=== PATIENT | female | born 1965 | race Caucasian/White ===

== ENCOUNTER 2020-05-12 09:46 | Emergency (ER) | payer SELFPAY ==
--- NOTE | ~2020-05-12 | XR_ITS ---
EXAMINATION: XR abdomen/kub 1V DATE: 05/12/2020 14:10 INDICATION: Left ureteral stone. TECHNIQUE: A supine view of the abdomen on 2 radiographs was obtained. COMPARISON: CT abdomen and pelvis 05/12/2020 FINDINGS: There are no dilated loops of bowel. There is a 5 mm stone in proximal left ureter. IMPRESSION: 1. 5 mm stone in proximal left ureter. Reviewed, dictated and finalized at location A. F [employer]
--- NOTE | ~2020-05-12 | CT_ITS ---
EXAMINATION: CT abdomen pelvis wo con DATE: 05/12/2020 12:20 INDICATION: Left flank pain. TECHNIQUE: Computed tomography (CT) of the abdomen and pelvis was performed without intravenous contr ast. Automated exposure control and iterative reconstruction technique were employed. The dose-length product was 552.63 mGy-cm. COMPARISON: None. FINDINGS: The visualized portions of the lung bases demonstrate patchy areas of peripheral septal thi ckening and groundglass opacities with areas of honeycombing. No pleural effusion. The heart size is normal. No pericardial effusion. There is a small sliding hiatal hernia. A calcification in the liver is consistent with old granulomatous disease. The gallbladder, spleen, pancreas, adrenal glands, and kidneys are normal. There is a 5 mm stone at left ureteropelvic junction. There are no dilated loops of bowel. The appendix is normal. There are no pathologically enlarged lymph nodes. There is no free intraperitoneal fluid. There is severe lower lumbar spondylosis. IMPRESSION: 1. 5 mm stone at left ureteropelvic junction. No hydronephrosis. 2. Multifocal lung disease, which may be chronic interstitial lung disease or a combination of acute and chronic lung disease (such as atypical pneumonia superimposed on chronic interstitial lung diseas e). Reviewed, dictated and finalized at location A. [employer] TE[employer]ER IMPRESSION: 1. 5 mm stone at left ureteropelvic junction. No hydronephrosis. 2. Multifocal lung disease, which may be chronic interstitial lung disease or a combination of acute and chronic lung disease (such as atypical pneumonia supe rimposed on chronic interstitial lung disease).
[2020-05-12 09:50] VITALS: BP 139/94; PULSE 96; RESP 20; TEMP 36.6; O2SAT 98
[2020-05-12 10:08] LABS: Basophils Percent Auto 0.2 % (0.2-1.2); Eosinophils Percent Auto 0.2 % (0-4.4); Hematocrit 40.1 % (37.0-47.0); Hemoglobin 13.4 g/dL (12.0-15.0); Immature Granulocyte Absolute 0.03 K/mm3 (0.00-0.031); Immature Granulocyte Percent A 0.4 % (0-0.5); Lymphocytes Absolute Auto 1.39 K/mm3 (0.9-3.2); Lymphocytes Percent Auto 17.1 % (18.3-44.2); Mean Corpuscular HGB Conc 33.4 g/dl (32-36); Mean Corpuscular Hemoglobin 31.4 pg (26-34); Mean Corpuscular Volume 93.9 fl (80-100); Mean Platelet Volume 8.9 fl (7.4-10.4); Monocytes Absolute Auto 0.4 K/mm3 (0.1-0.6); Monocytes Percent Auto 5.4 % (2.6-8.5); Neutrophils Absolute Auto 6.2 K/mm3 (1.3-6.7); Neutrophils Percent Auto 76.7 % (45.5-73.1); Platelet Count Result 229 k/mm3 (150-375); Red Blood Count 4.27 M/mm3 (4.2-5.4); White Blood Count 8.1 K/mm3 (4.5-10.0)
[2020-05-12 10:23] LABS: Anion Gap 7 mmol/L (8-16); Blood Urea Nitrogen 17 mg/dL (7-17); Calcium 8.6 mg/dL (8.4-10.2); Carbon Dioxide 29 mmol/L (22-30); Chloride 101 mmol/L (98-107); Estimated CRCL calculation 71 ml/min; Estimated Glomerular Filt Rate > 60; Glucose 124 mg/dL (65-105); Potassium 3.9 mmol/L (3.4-5.0); Sodium 137 mmol/L (137-145)
[2020-05-12 10:56] VITALS: BP 125/69; PULSE 80; RESP 20; O2SAT 96
[2020-05-12 11:05] LABS: Add Urine Microscopic? YES; Appearance Urine Clear (Clear); Bacteria Urine Trace /hpf; Bilirubin Urine Negative (Negative); Blood Urine Negative (Negative); Color Urine Yellow (Yellow); Glucose Urine UA Negative (Negative); Ketones Urine Negative (Negative); Leukocyte Esterase Ur Negative LEU/UL (Negative); Mucus Urine Heavy /lpf; Nitrate Urine Negative (Negative); Protein Urine 1+ mg/dL (Negative); Specific Grav Ur 1.027 (1.001-1.035); Squamous Epithelial Cell Urine Many /hpf (Few); WBC Urine 0-3 /hpf
[2020-05-12 11:27] VITALS: BP 122/68; PULSE 79; RESP 20; O2SAT 94
--- NOTE | 2020-05-12 11:35 | ED.GENADULT ---
HPI - General Adult General Chief complaint: Abdominal Pain Stated complaint: KIDNEY STONE Time Seen by Provider: 05/12/20 10:11 Source: patient Mode of arrival: ambulatory Limitations: no limitations History of Present Illness HPI narrative: Patient presents with chief complaint of left flank pain that presented over 2 weeks ago and she was seen at [facility] and diagnosed with a 6.4 mm left proximal ureter kidney stone. Patient states that she took the Flomax, Keflex, Martin and ibuprofen that was prescribed to her. Patient states she has not any improvement in her left flank pain but she also has some headache. Patient denies fever, chills, nausea, vomiting, diarrhea, changes in vision or hearing, neurologic deficits or any other symptoms. Patient did not follow-up with a urologist. Patient denies dysuria or hematuria. Related Data Home Medications Medication Instructions Recorded Confirmed citalopram 40 mg PO DAILY 05/12/20 05/12/20 lisinopril-hydrochlorothiazide 1 tablet PO DAILY 05/12/20 05/12/20 Allergies Allergy/AdvReac Type Severity Reaction Status Date / Time No Known Allergies Allergy Verified 05/12/20 09:53 Review of Systems Review of Systems: Narrative: CONSTITUTIONAL: Denies fever, chills, or sweats. EYES: Denies visual changes, redness, or discharge. ENT: Denies rhinorrhea, congestion, sore throat, or otalgia. CARDIOVASCULAR: Denies chest pain, palpitations, or edema. RESPIRATORY: Denies cough or dyspnea. GASTROINTESTINAL: Reports left flank pain denies abdominal pain, nausea, vomiting, or diarrhea. GENITOURINARY: Denies dysuria or hematuria. SKIN: Denies rash or itching. MUSCULOSKELETAL: Denies back pain, joint pain, or myalgia. NEUROLOGIC: Reports headache denies numbness, dizziness, or weakness. PSYCHIATRIC: Denies anxiety or depression. PMFSH Social History Social History Gender identity (if verbalized by the patient): Female Exam Narrative: Exam Narrative: GENERAL: Well-appearing, well-nourished, and in no acute distress. HEAD: Normocephalic, atraumatic. EYES: PERRLA and EOMI. NECK: Supple. No adenopathy or masses. CHEST: Clear to auscultation. No respiratory distress. No wheezes rales or rhonchi HEART: Regular rate and rhythm. No murmur heard. Normal peripheral pulses. ABDOMEN: No CVA tenderness. Soft, nontender, nondistended, normal active bowel sounds. EXTREMITIES: Normal range of motion. No edema. SKIN: Warm, dry, no rash. NEURO: No focal deficits. Alert and oriented x3. Patient speaking appropriately without any signs of difficulty. PSYCH: Normal mood and affect. Course Vital Signs Vital signs: Vital Signs Temperature 97.9 F 05/12/20 09:50 Pulse Rate 96 05/12/20 09:50 Respiratory Rate 20 05/12/20 09:50 Blood Pressure 139/94 H 05/12/20 09:50 Pulse Oximetry 98 05/12/20 09:50 Temperature 97.9 F 05/12/20 09:50 Pulse Rate 84 05/12/20 15:36 Respiratory Rate 16 05/12/20 15:36 Blood Pressure 136/72 05/12/20 15:36 Pulse Oximetry 98 05/12/20 15:36 Medical Decision Making MDM Narrative Medical decision making narrative: Consult with nurse practitioner Tara with urology. She states to put patient on Flomax and have her follow-up with her in the office on Friday. Patient has been resting comfortably throughout her ER stay. Her pain is well controlled. She does not have fever vomiting or other signs of systemic infection. They ordered a KUB and urine culture. I have discussed the plan of follow-up on Friday with the patient as well as the need to restart Flomax strain her urine and report to emergency department she develops any emergent symptoms. Patient verbalized understanding, plan and denies any other questions or concerns. Vital Signs Vital Signs: Vital Signs Temperature 97.9 F 05/12/20 09:50 Pulse Rate 96 05/12/20 09:50 Respiratory Rate 20 05/12/20 09:50 Blood Pressure 139/94 H 05/12/20 09:50 Pulse Oximetry 98
[2020-05-12 12:39] VITALS: BP 134/85; PULSE 79; RESP 16; O2SAT 95
[2020-05-12 14:03] VITALS: BP 126/79; PULSE 81; RESP 21; O2SAT 96
[2020-05-12] MEDS: KETOROLAC 15 MG/ML VIAL (*BKC) IV PUSH (14:14)
[2020-05-12 15:36] VITALS: BP 136/72; PULSE 84; RESP 16; O2SAT 98
== END 2020-05-12 15:37 | disposition home or self-care (01) ==
PROVIDERS: Emergency Provider Emergency Medicine; PCP Family Medicine
DX: N20.1 Calculus of ureter (principal); J98.4 Other disorders of lung
CPT/HCPCS: 36415; 74018; 74176; 80048; 81001; 85025; 96374; 99284; J1885